=== PATIENT | female | born 1975 | race Caucasian/White ===

== ENCOUNTER 2023-01-20 19:00 | Emergency (ER) | payer OTHER, SELFPAY ==
[2023-01-20 19:02] VITALS: BP 140/98; PULSE 102; RESP 16; TEMP 36.8; O2SAT 99; BMI 33.6
--- NOTE | 2023-01-20 19:05 | ECG_ITS ---
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
[2023-01-20] MEDS: ORPHENADRINE 60 MG/ 2 ML VIAL IV (19:31)
[2023-01-20] MEDS: ONDANSETRON PF 4 MG/2 ML VIAL IV (19:31)
[2023-01-20] MEDS: KETOROLAC TROMETHAMINE 30 MG/ML VIAL IVP (19:31)
== END 2023-01-20 21:03 | disposition home or self-care (01) ==
PROVIDERS: Emergency Provider Emergency Medicine
DX: M25.552 Pain in left hip (principal); V43.62XA Car passenger injured in collision with other type car in traffic accident, initial encounter; F17.210 Nicotine dependence, cigarettes, uncomplicated
CPT/HCPCS: 72125; 73060; 73502; 93005; 96374; 96375; 99284

== ENCOUNTER 2023-01-22 08:24 | Emergency (ER) | payer OTHER, SELFPAY ==
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
[2023-01-22 08:49] VITALS: BP 103/69; PULSE 78; RESP 16; TEMP 36.7; O2SAT 99; BMI 33.7
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
[2023-01-22] MEDS: KETOROLAC TROMETHAMINE 30 MG/ML VIAL IM (10:08)
== END 2023-01-22 10:15 | disposition home or self-care (01) ==
PROVIDERS: Emergency Provider Emergency Medicine
DX: S40.012A Contusion of left shoulder, initial encounter (principal); V43.62XA Car passenger injured in collision with other type car in traffic accident, initial encounter; F17.210 Nicotine dependence, cigarettes, uncomplicated
CPT/HCPCS: 73030; 96372; 99284